=== PATIENT | male | born 1965 | race Caucasian/White ===

== ENCOUNTER 2022-12-08 07:17 | Day surgery (SDC) | payer OTHER, SELFPAY ==
--- NOTE | 2022-12-07 10:00 | HO.ANESPROP2 ---
Documented by User: Audelia Jovel NP 12/07/22 10:00 HPI - Anesthesia Eval Consult details Narrative: 57yo M for Colonoscopy [facility] Past Medical History Medical History (Updated 12/07/22 @ 08:16 by Skylar Guillen) Colon polyps Diabetes mellitus Elevated cholesterol GERD (gastroesophageal reflux disease) Hypertension MARIANNE (obstructive sleep apnea) Tubular adenoma Surgical History Surgical History (Updated 12/07/22 @ 08:16 by Skylar Guillen) History of colonoscopy History of endoscopy History of eye surgery History of facial surgery Social History Social History Patient Tobacco Use Status: Never used Tobacco Use of substances other than those prescribed or required for medical reasons: No Are you DNR?: No Advance Directives: No Advance Directives Information Provided: Yes Recently lost weight without trying: No Nutrition Risks: No Nutritional Risk Meds Allergies Allergy/AdvReac Type Severity Reaction Status Date / Time No Known Allergies Allergy Unverified 05/13/20 14:46 [No Known Allergies*] Home Medications Medication Instructions Recorded Confirmed Last Taken Type amlodipine 10 mg tablet 10 mg PO DAILY 12/07/22 12/07/22 Unknown History atorvastatin 20 mg tablet 20 mg PO DAILY 12/07/22 12/07/22 Unknown History dulaglutide 0.75 mg/0.5 mL 0.75 mg subcut QWEEK 12/07/22 12/07/22 Unknown History subcutaneous pen injector (Trulicity) lisinopril 40 mg tablet 40 mg PO DAILY 12/07/22 12/07/22 Unknown History metformin 1,000 mg tablet 1,000 mg PO BID 12/07/22 12/07/22 Unknown History omeprazole 20 mg capsule,delayed 20 mg PO DAILY 12/07/22 12/07/22 Unknown History release simvastatin 12/07/22 12/07/22 Unknown History Exam Exam Date and Time: December 07, 2022 1000 Assessment and Plan Assessment Anesthesia Assessment: Chart Reviewed Documented by User: Chel Cain MD 12/08/22 08:31 [facility] Past Medical History Medical History (Updated 12/07/22 @ 08:16 by Skylar Guillen) Colon polyps Diabetes mellitus Elevated cholesterol GERD (gastroesophageal reflux disease) Hypertension MARIANNE (obstructive sleep apnea) Tubular adenoma Family History Family history of problems with anesthesia: No Surgical History Surgical History (Updated 12/07/22 @ 08:16 by Skylar Guillen) History of colonoscopy History of endoscopy History of eye surgery History of facial surgery History of Problems with Anesthesia: No Social History Social History Patient Tobacco Use Status: Never used Tobacco Use of substances other than those prescribed or required for medical reasons: No Are you DNR?: No Advance Directives: No Advance Directives Information Provided: Yes Recently lost weight without trying: No Nutrition Risks: No Nutritional Risk Meds Allergies Allergy/AdvReac Type Severity Reaction Status Date / Time No Known Allergies Allergy Unverified 05/13/20 14:46 [No Known Allergies*] Home Medications Medication Instructions Recorded Confirmed Last Taken Type amlodipine 10 mg tablet 10 mg PO DAILY 12/07/22 12/07/22 Unknown History atorvastatin 20 mg tablet 20 mg PO DAILY 12/07/22 12/07/22 Unknown History dulaglutide 0.75 mg/0.5 mL 0.75 mg subcut QWEEK 12/07/22 12/07/22 Unknown History subcutaneous pen injector (Trulicity) lisinopril 40 mg tablet 40 mg PO DAILY 12/07/22 12/07/22 Unknown History metformin 1,000 mg tablet 1,000 mg PO BID 12/07/22 12/07/22 Unknown History omeprazole 20 mg capsule,delayed 20 mg PO DAILY 12/07/22 12/07/22 Unknown History release simvastatin 12/07/22 12/07/22 Unknown History Exam Airway Mallampati Class: III TM Dist: <=3cm Neck ROM: Full Heart: rrr Lungs: cta Assessment and Plan Assessment Anesthesia Assessment: Anesthesia Plan Discussed Final Anesthetic Review Family History of Problems with Anesthesia: No History of Problems with Anesthesia: No NPO: Yes ASA Class: III Final Preanesthetic Review: No Changes in Pt Med Stat, Meds/Allgs Chart Reviewed, Consent Obtained/Reviewed and Anes Risks/Benef Reviewed Patient Risk: Intermediate Procedure Risk: Low Anesthetic Plan Anesthetic Plan: MAC: Disposition: Standard PACU
[2022-12-08 07:41] VITALS: BMI 36.2
[2022-12-08 07:47] VITALS: BP 131/79; PULSE 62; RESP 16; TEMP 36.2; O2SAT 93
[2022-12-08 08:00] LABS: Glucose, Whole Blood 132 mg/dL (60-115)
[2022-12-08] MEDS: Lactated Ringers 1,000 ML 100 ML IVCONT (08:02)
--- NOTE | 2022-12-08 08:46 | MHC.SHP ---
Pre-Procedural Eval Section A Date of Service: 12/08/22 Section B Chief Complaint: screening Details of Present Illness: see H&P no changes Relevant Family History (Specify if Yes): No Relevant Social History: None Present Medications: see Short Stay Collaborative assessment Medical History: No relevant PMH Allergies: Allergies Allergy/AdvReac Type Severity Reaction Status Date / Time No Known Allergies Allergy Unverified 05/13/20 14:46 [No Known Allergies*] Review of Systems Sugical H&P ROS: Negative: Constitution, Cardiovascular, Respiratory, Neurological, Psychiatric, Hem-Onc, Allergic/Immunologic, Gastrointestinal, Genitourinary, Musculoskeletal, Integumentary, Endocrine and Eyes/Ears/Nose/Throat Exam Surgical H&P Exam: Normal: HEENT, Normal: Heart, Normal: Lungs, Normal: Extremities, Normal: Abdomen, Normal: Skin and Normal: Neurological Plan Diagnosis/Plan: Unchanged I have reviewed the history and physical and performed a pertinent physical examination on my patient. No changes have occurred unless specified. Time Spent With Patient Time: Total time managing care of this patient today ____ minutes.
[2022-12-08 09:35] VITALS: BP 114/69; PULSE 64; RESP 16; TEMP 36.5; O2SAT 95
--- NOTE | 2022-12-08 09:37 | PM.OP ---
Brief Operative Note Date of Service: 12/08/22 Pre-op diagnosis: screening Post-op diagnosis: same Procedure: colonoscopy Surgeon: Joaquin Ruiz Anesthesia: MAC Was an Sql Database Programmer used for this Procedure?: No Estimated blood loss (mL): 2 Pathology: other Condition: stable Disposition: PACU
[2022-12-08 09:53] VITALS: BP 125/78; PULSE 55; RESP 18; TEMP 36.4; O2SAT 94
--- NOTE | 2022-12-08 11:01 | OP_ITS ---
DATE OF SERVICE: 12/08/2022 SURGEON: Joaquin Ruiz MD INDICATIONS: Colon cancer screening and prior history of colon polyps. PREOPERATIVE DIAGNOSIS: POSTOPERATIVE DIAGNOSIS: PROCEDURE PERFORMED: Colonoscopy to the terminal ileum with biopsy. ESTIMATED BLOOD LOSS: COMPLICATIONS: ANESTHESIA: Monitored anesthesia care. ASSISTANTS: SPECIMENS: DESCRIPTION OF PROCEDURE: A history and physical was performed. The risks and benefits of the procedure were explained to the patient. Informed consent was obtained. The patient was placed in the left lateral decubitus position. A digital rectal exam was performed and was found to be normal. The Olympus pediatric video colonoscope was introduced into the rectum and advanced to the cecum without difficulty. The cecum was identified by transillumination, palpation, and identification of the ileocecal valve. Examination was performed. The scope was removed. He tolerated the procedure well and was returned to the recovery area in stable condition. FINDINGS: The terminal ileum was examined and appeared normal. The visualized colonic mucosa was normal. The quality of the prep was good with some liquid stool that was washed and suctioned, scattered throughout the colon. There was mild sigmoid diverticulosis. In the rectum were 2 less than 5 mm polyps, which were removed with a biopsy forceps. No other polyps were identified. Retroflexed examination showed some small internal hemorrhoids. IMPRESSION: Colon polyps. RECOMMENDATIONS: Follow up the biopsy results. MD SHYAM Gonzales/HONEY / [id number]
== END 2022-12-08 10:15 | disposition home or self-care (01) ==
PROVIDERS: PCP Internal Medicine; Visit Provider Internal Medicine Gastroenterology
PROC: 0DJD8ZZ Inspection of Lower Intestinal Tract, Via Natural or Artificial Opening Endoscopic (ICD-10-PCS; CPT 45378; principal; 2022-12-08 08:50)
DX: Z12.11 Encounter for screening for malignant neoplasm of colon (principal); Z86.010 Personal history of colon polyps; D12.8 Benign neoplasm of rectum; K57.30 Diverticulosis of large intestine without perforation or abscess without bleeding; K64.8 Other hemorrhoids; K21.9 Gastro-esophageal reflux disease without esophagitis; I10 Essential (primary) hypertension; E78.00 Pure hypercholesterolemia, unspecified; E11.9 Type 2 diabetes mellitus without complications; G47.33 Obstructive sleep apnea (adult) (pediatric); Z99.89 Dependence on other enabling machines and devices; Z79.84 Long term (current) use of oral hypoglycemic drugs; Z79.85 Long-term (current) use of injectable non-insulin antidiabetic drugs; Z79.899 Other long term (current) drug therapy
CPT/HCPCS: 45380; 82947; 88305